=== PATIENT | male | born 1945 | race Caucasian/White ===

== ENCOUNTER → 2022-04-21 | Day surgery (SDC) | payer MEDICARE ==
[2022-04-20 16:12] VITALS: BMI 25.9
[2022-04-21 10:42] VITALS: BP 102/60; TEMP 98.2
== END ==
LOC: RAD 09:01
PROVIDERS: ATTEND Neurological Surgery
DX: G91.2 (Idiopathic) normal pressure hydrocephalus (principal); Z79.82 Long term (current) use of aspirin; Z79.84 Long term (current) use of oral hypoglycemic drugs; Z79.899 Other long term (current) drug therapy
CPT/HCPCS: 62270

== ENCOUNTER 2022-05-31 08:30 | Emergency (ER) | payer MEDICARE ==
[2022-05-31 09:10] LABS: #Eosinphils 0.8 thou/uL (0.0-0.7); #Lymphocytes 2.4 thou/uL (1.20-3.40); #Monocytes 0.7 thou/uL (0.11-0.59); #Neutrophils 5.1 thou/uL (1.40-6.50); %Basophils 0.2 % (0.0-1.0); %Eosinophils 8.6 % (0.0-10.0); %Lymphocytes 26.4 % (21.0-51.0); %Monocytes 7.8 % (0.0-10.0); Hemoglobin 10.3 g/dL (14.0-18.0); Mean Corpuscular Hemoglobin 29.6 pg (27.0-31.0); Mean Corpuscular Volume 89.7 fl (78.0-98.0); Mean Platelet Volume 8.4 fL (7.4-10.4); Platelet Count 224 thou/uL (130-400); RBC Distribution Width 13.6 % (11.5-14.5); Red Blood Cell (RBC) Count 3.49 mill/uL (4.70-6.10)
[2022-05-31 09:34] LABS: ALT (SGPT) 20 U/L (8-55); Alkaline Phosphatase 71 U/L (40-110); BUN (Urea Nitrogen) 43 mg/dL (8.4-25.7); Bilirubin, Total 0.4 mg/dL (0.2-1.2); Calc. Creatinine Clearance 0 mL/min (70-130); Calcium 9.3 mg/dL (7.8-10.44); Carbon Dioxide 18 mmol/L (23-31); Chloride 103 mmol/L (98-107); Estimated GFR 37; Glucose 193 mg/dL (83-110); Sodium 134 mmol/L (136-145)
[2022-05-31 09:40] LABS: AST (SGOT) 25 U/L (5-34); Potassium 5.1 mmol/L (3.5-5.1)
[2022-05-31 09:41] LABS: Anion Gap 18 mmol/L (10-20)
== END 2022-05-31 11:37 | disposition home or self-care (01) ==
LOC: ERS 08:30
DX: G91.9 Hydrocephalus, unspecified (principal); Z86.73 Personal history of transient ischemic attack (TIA), and cerebral infarction without residual deficits; W19.XXXA Unspecified fall, initial encounter
CPT/HCPCS: 70450; 70551; 71045; 72125; 80053; 84484; 85025; 93005; 93880

== ENCOUNTER → 2022-05-31 | Day surgery (SDC) | payer MEDICARE ==
[2022-05-29 16:18] VITALS: BMI 25.1
[2022-05-31 13:26] VITALS: BP 164/80; TEMP 97.5
== END | disposition home or self-care (01) ==
LOC: RAD 11:59
PROVIDERS: ATTEND Neurological Surgery
PROC: 009U3ZX Drainage of Spinal Canal, Percutaneous Approach, Diagnostic (ICD-10-PCS; principal; 2022-05-31)
DX: G91.2 (Idiopathic) normal pressure hydrocephalus (principal); F03.90 Unspecified dementia, unspecified severity, without behavioral disturbance, psychotic disturbance, mood disturbance, and anxiety; Z79.2 Long term (current) use of antibiotics; Z79.82 Long term (current) use of aspirin; Z79.84 Long term (current) use of oral hypoglycemic drugs; Z79.899 Other long term (current) drug therapy; Z88.0 Allergy status to penicillin; Z88.1 Allergy status to other antibiotic agents; Z86.73 Personal history of transient ischemic attack (TIA), and cerebral infarction without residual deficits; W19.XXXA Unspecified fall, initial encounter
CPT/HCPCS: 62270; 70450; 70551; 71045; 72125; 80053; 84484; 85025; 93005; 93880